=== PATIENT | male | born 1960 | race American Indian/Alaskan Native ===

== ENCOUNTER 2019-08-10 10:00 | Outpatient (CLI) | payer BC ==
[2019-08-10 10:26] LABS: Blood Urea Nitrogen 12 mg/dL (9-20)
== END 2019-08-10 10:01 | disposition home or self-care (01) ==
LOC: CT 10:00
PROVIDERS: ATTEND Urology
DX: K80.80 Other cholelithiasis without obstruction (principal); N40.0 Benign prostatic hyperplasia without lower urinary tract symptoms; R31.0 Gross hematuria
CPT/HCPCS: 36415; 74178; 82565; 84520; Q9967